=== PATIENT | male | born 1965 | race Caucasian/White ===

== ENCOUNTER 2023-09-29 09:02 | Outpatient (AMB) | payer OTHER, SELFPAY ==
--- NOTE | 2023-09-29 09:04 | A.OFFVIS_ITS ---
Intake Vital Signs 3 09/29/23 09:06 Height 5 ft 8.5 in Weight 260 lb BMI 39.0 BP 142/80 H Blood Pressure Location Rt brachial Position Sitting Pulse 87 Pulse Source Pulse Oximeter Pulse Oximetry (%) 96 Oxygen Delivery Method Room Air Intake Visit Reasons: Dyspnea on Exertion Visual Design Lead Required: No Clerical Assistant: Clerical Assistant offered & declined Accompanied by: Spouse Allergies Penicillins Allergy (Severe, Verified 09/29/23 09:12) trouble breathing Medication List - Last Reconciled 09/29/23 by Chika Shine LPN amlodipine 5 mg PO DAILY fluticasone propionate 50 mcg/actuation (Flonase Allergy Relief) 1 spray intranasal DAILY HPI Dyspnea on Exertion 2 HPI0 Details John is a pleasant 58 year old male, former smoker with approximately 100pyh, quit 2018, with underlying HTN and obstructive sleep apnea. He was referred by PCP for pulmonary evaluation. He reports worsening dyspnea on exertion over the last few years, however became more noticeable in June of last year as well as intermittent cough. He denies wheezing or chest congestion. He had a syncopal event while driving towards the end of June and has had a thorough work up with cardiology, undergoing two stress tests, EKG and recent echocardiogram, reportedly without significant findings. CTA performed, reportedly unremarkable, report not available. PFT performed, report below, without significant obstructive defect. Patient continues to fatigue easily and has had a 20 lb weight gain over the last few months as well as decreased excercise capacity. Of note, he did have a provoked DVT of LLE in 2018, completing 1 yr of anticoagulation. Since then, no DVT however has had intermittent swelling and pain of LLE. Denies orthopnea. He reports significant daytime fatigue as well as loud snoring and witnessed apneas. He had prior sleep study in 2017 revealing JOHANNE however had difficulties tolerating due to nasal congestion. He denies any prior history of asthma. He denies any family history of respiratory conditions. He denies any occupational exposures. [facility] Social History (Updated 09/29/23 @ 09:15 by Chika Shine LPN) Patient Tobacco Use Status: Former Tobacco user Tobacco use type: Cigarette Cigarette Packs Per Day: 2.5 Years Smoked: 42 Review of Systems Const Denies chills, Denies excessive sweating, Denies fever(s), Denies headache(s) and Denies night sweats Eyes Denies dry eyes, Denies irritation and Denies itchy eyes ENT Reports Normal hearing present, Denies headache(s), Denies nasal discharge and Denies sore throat Card Denies chest pain, Denies chest pain at rest, Denies chest pain with activity, Denies claudication, Denies orthopnea and Denies paroxysmal nocturnal dyspnea Resp Denies chest congestion, Denies excessive phlegm production, Denies pain on inspiration, Denies pain with cough, Denies stridor and Denies wheezing Musc Denies myalgias Neuro Reports Normal hearing present and Denies headache(s) Endo Denies excessive sweating Benjamín/Lymph Denies lymphadenopathy Aller/Immun Denies itchy eyes, Denies seasonal rhinorrhea and Denies wheezing Physical Exam Vital Signs: Last Vital Signs Pulse 87 09/29/23 09:06 BP 142/80 H 09/29/23 09:06 Pulse Ox 96 09/29/23 09:06 Oxygen Delivery Method Room Air 09/29/23 09:06 BMI result Body Mass Index 39.0 Const General: cooperative, healthy appearing, comfortable, no acute distress, well developed and alert Nutritional Appearance: obese Orientation/consciousness: patient oriented x3 Limitations: no limitations HEENT Head: Yes normal to inspection, Yes normocephalic and Yes atraumatic Ears: hearing grossly normal bilaterally and external ears normal Eyes General: appearance normal, both eyes and all related structures Eyelids: Yes eyelids normal Sclerae: sclerae normal EOM: EOMs intact bilaterally Neck Neck: Yes normal visual inspection and Yes no lymphadenopathy Lymphatic: no lymphadenopathy noted Chest Chest palpation & inspection: normal inspection of the chest Resp Effort & Inspection: normal respiratory effort, able to speak in complete sentences, no audible wheezes, no cough, no stridor, not tachypneic, no tripod positioning and no use of accessory muscles Auscultation: clear to auscultation bilaterally Cardio Jugular venous distension: no JVD Rate: regular rate Rhythm: regular rhythm Skin Other: warm, dry General skin exam: no rashes or lesions noted Neuro General: patient oriented x3 Cranial nerves: Yes Normal hearing present Cognition (Neuro): normal cognition Gait exam (Neuro): Normal gait present Extrem Other: 2-3+ pitting edema of LLE compared to RLE, wearing compression stockings. Psych Appearance: grossly normal and well kempt Speech and movement: Normal speech and movement present and Clear speech present Affect: normal affect Attitude: cooperative Thought process: Normal thought process present Thought content: Normal thought content present Insight: Good insight present (Psych) Judgement: Good judgement present (Psych) Office Procedures 6 Minute Walk Time:: 09:45 SPO2 % at rest: 94 Pulse at rest: 75 SPO2 % during excercise: 93 Pulse during excercise: 112 SPO2 % after excercise: 97 Pulse after excercise: 85 Distance in yards walked: 1,000 Fabiola Score: 4 Performance Observations:: Patient walked unassisted on level ground for 6 minutes. Patient maintained a brisk pace and maintained O2 saturation 93% or greater for the entire walk with pulse rate was 80-112. Patient noted to be short of breath at the end of the walk and reports being tired. [id number] - 6 Minute Walk Results Reviewed Results Reviewed: Assessment & Plan Assessment & Plan (1) COPD (chronic obstructive pulmonary disease): Code(s): J44.9 - Chronic obstructive pulmonary disease, unspecified (2) History of DVT (deep vein thrombosis): Code(s): Z86.718 - Personal history of other venous thrombosis and embolism (3) Dyspnea on exertion: Code(s): R06.09 - Other forms of dyspnea (4) Daytime somnolence: Code(s): R40.0 - Somnolence (5) Personal history of tobacco use: Code(s): Z87.891 - Personal history of nicotine dependence Plan John's symptoms are likely multifactorial with pulmonary and obesity/deconditioning etiologies as well as uncontrolled sleep apnea. Will empirically treat with Breo. Reviewed importance good oral hygiene. Also reviewed importance of weight loss and increase in activity. Patient's reports intermittent left lower extremity pain and swelling, noting prior DVT in this extremity. 2-3+ pitting edema of LLE noted today. Will send for ultrasound of lower extremity. 6MWT performed and patient does not require supplemental oxygen at this time. We had detailed discussion with regarding sleep apnea and the need for repeat testing. Patient is in agreement with moving forward with home sleep study, will enter this. Will attempt to obtain prior imaging which was performed at [facility] as well as prior echocardiogram. All questions were answered and patient is in agreement of plan. Will follow-up to review results of sleep study as well as response to Breo. Orders: Orders 2 US venous duplex LE LT Today R60.0 - Localized edema, Z86.718 - Personal history of other venous thrombosis and embolism AMB 6 minute walk Today R06.09 - Other forms of dyspnea RT home sleep study Today R40.0 - Somnolence Medications: New 2 fluticasone furoate-vilanterol 100-25 mcg/dose (Breo Ellipta) 1 inh inhalation DAILY 60 ea 6RF Coding Level of Care Code New Pt Level 4 (63396) Diagnoses COPD (chronic obstructive pulmonary disease) J44.9 History of DVT (deep vein thrombosis) Z86.718 Dyspnea on exertion R06.09 Daytime somnolence R40.0 Personal history of tobacco use Z87.891 CPT Codes Coding ([id number])
[2023-09-29 09:06] VITALS: BP 142/80; PULSE 87; O2SAT 96; BMI 39.0
[2023-09-29 10:16] VITALS: PULSE 75; O2SAT 94
== END 2023-09-29 10:59 | disposition home or self-care (01) ==
PROVIDERS: PCP Nurse Practitioner Primary Care; Referring Provider Nurse Practitioner Primary Care; Visit Provider Nurse Practitioner Family
DX: J44.9 Chronic obstructive pulmonary disease, unspecified (principal); Z86.718 Personal history of other venous thrombosis and embolism; R06.09 Other forms of dyspnea; R40.0 Somnolence; Z87.891 Personal history of nicotine dependence
CPT/HCPCS: 94618; 99204

== ENCOUNTER → 2023-09-29 09:02 | Outpatient (BNVA) | payer OTHER, SELFPAY | PROVIDERS: PCP Nurse Practitioner Primary Care; Referring Provider Nurse Practitioner Primary Care; Visit Provider Nurse Practitioner Family | DX: R06.09 Other forms of dyspnea (principal); J44.9 Chronic obstructive pulmonary disease, unspecified; R40.0 Somnolence; Z86.718 Personal history of other venous thrombosis and embolism; Z87.891 Personal history of nicotine dependence | CPT/HCPCS: 94618 ==

== ENCOUNTER 2023-09-30 12:20 | Outpatient (REF) | payer OTHER, SELFPAY ==
--- NOTE | ~2023-09-30 | US_ITS ---
EXAMINATION: US VENOUS ULTRASOUND WITH DOPPLER LOWER EXTREMITY, LEFT CLINICAL INFORMATION: Left leg edema COMPARISON: Ultrasound left lower leg 05/17/2020 TECHNIQUE: Ultrasound of the deep veins is performed from the hip to the calf with compression sonography and color and pulse Doppler assessment. Spectral analysis with color-flow imaging is performed. FINDINGS: There is a duplicated system on the left superficial femoral vein. There is clot visualized in the duplicated mid and distal left superficial femoral vein. The left common femoral, the other left superficial femoral vein, popliteal vein, posterior tibial and peroneal veins are patent. If the patient's symptoms persist, followup ultrasound in 5 days 7 days might be of value to exclude proximal propagation from a non-visualized calf vein. US/US venous duplex LE LT IMPRESSION: 1. 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 2. The other duplicated superficial femoral, common femoral, popliteal, peroneal and posterior tibial veins are patent. There is no Crockett's cyst.
== END 2023-09-30 12:21 | disposition home or self-care (01) ==
LOC: HO.US 12:20
PROVIDERS: PCP Internal Medicine; Visit Provider Nurse Practitioner Family
DX: R60.0 Localized edema (principal); Z86.718 Personal history of other venous thrombosis and embolism
CPT/HCPCS: 93971

== ENCOUNTER 2024-04-20 08:44 | Outpatient (AMB) | payer OTHER, SELFPAY ==
[2024-04-20 08:46] VITALS: BP 140/78; PULSE 66; O2SAT 95; BMI 38.5
--- NOTE | 2024-04-20 08:46 | A.OFFVIS_ITS ---
Vital Signs 04/20/24 08:46 Height 5 ft 8.5 in Weight 257 lb 4 oz BMI 38.5 BP 140/78 H Blood Pressure Location Rt brachial Position Sitting Pulse 66 Pulse Source Pulse Oximeter Pulse Oximetry (%) 95 Oxygen Delivery Method Room Air Intake Visit Reasons: dyspnea Allergies Penicillins Allergy (Severe, Verified 04/20/24 08:52) trouble breathing HPI HPI dyspnea: Details: John is a pleasant 59 year old male, former smoker with approximately 100pyh, quit 2017, with underlying COPD, HTN, JOHANNE unable to tolerate CPAP therapy and h/o provoked DVT completed course of Coumadin. He reports worsening dyspnea on exertion over the last few years was started on Wixela at the last visit, with initial improvements however continues with dyspnea on exertion and intermittent cough which he attributes to post nasal drip. He has trialed nasal sprays in the past that have not been effective and not interested in trialing one at this time. He reportedly had allergy testing a few years ago which was negative. He is a part of the lung screening through [facility] and will be scheduled for an annual chest CT in June. Today he also notes significant painful LLE with 3+ nonpitting edema and increased erythema. Denies any trauma to the area. At the last visit, he was sent for a home sleep study however this was never performed and he is not interested in scheduling at this time. [facility] Social History Patient Tobacco Use Status: Former Tobacco user Tobacco use type: Cigarette Cigarette Packs Per Day: 2.5 Years Smoked: 42 Review of Systems Const Denies chills, Denies excessive sweating, Denies fever(s), Denies headache(s) and Denies night sweats Eyes Denies dry eyes, Denies irritation and Denies itchy eyes ENT Reports Normal hearing present, Denies headache(s), Denies nasal discharge and Denies sore throat Card Denies chest pain, Denies chest pain at rest, Denies chest pain with activity, Denies claudication, Reports leg edema (LLE), Denies orthopnea and Denies paroxysmal nocturnal dyspnea Resp Denies chest congestion, Denies excessive phlegm production, Denies pain on inspiration, Denies pain with cough, Denies stridor and Denies wheezing Musc Denies myalgias Neuro Reports Normal hearing present and Denies headache(s) Endo Denies excessive sweating Aller/Immun Denies itchy eyes, Denies seasonal rhinorrhea and Denies wheezing Physical Exam Vital Signs: Last Vital Signs Pulse 66 04/20/24 08:46 BP 140/78 H 04/20/24 08:46 Pulse Ox 95 04/20/24 08:46 Oxygen Delivery Method Room Air 04/20/24 08:46 BMI result Body Mass Index 38.5 Const General: cooperative, healthy appearing, comfortable, no acute distress, well developed and alert Nutritional Appearance: obese Orientation/consciousness: patient oriented x3 Limitations: no limitations HEENT Head: Yes normal to inspection, Yes normocephalic and Yes atraumatic Ears: hearing grossly normal bilaterally and external ears normal Eyes General: appearance normal, both eyes and all related structures Eyelids: Yes eyelids normal Sclerae: sclerae normal EOM: EOMs intact bilaterally Neck Neck: Yes normal visual inspection and Yes no lymphadenopathy Lymphatic: no lymphadenopathy noted Chest Chest palpation & inspection: normal inspection of the chest Resp Other: bibasilar inspiratory crackles Effort & Inspection: normal respiratory effort, able to speak in complete sentences, no audible wheezes, no cough, no stridor, not tachypneic, no tripod positioning and no use of accessory muscles Cardio Jugular venous distension: no JVD Rate: regular rate Rhythm: regular rhythm Skin Other: warm, dry General skin exam: no rashes or lesions noted Neuro General: patient oriented x3 Cranial nerves: Yes Normal hearing present Cognition (Neuro): normal cognition Gait exam (Neuro): Normal gait present Extrem Other: LLE with 3+ nonpitting edema, increased erythema, and tender to the touch anteriorly, no discomfort posteriorly Psych Appearance: grossly normal and well kempt Speech and movement: Normal speech and movement present and Clear speech present Affect: normal affect Attitude: cooperative Thought process: Normal thought process present Thought content: Normal thought content present Insight: Good insight present (Psych) Judgement: Good judgement present (Psych) Assessment & Plan Assessment & Plan (1) COPD (chronic obstructive pulmonary disease): Code(s): J44.9 - Chronic obstructive pulmonary disease, unspecified Category: Medical (2) History of DVT (deep vein thrombosis): Code(s): Z86.718 - Personal history of other venous thrombosis and embolism Category: Medical (3) Dyspnea on exertion: Code(s): R06.09 - Other forms of dyspnea Category: Medical (4) Daytime somnolence: Code(s): R40.0 - Somnolence Category: Medical (5) Personal history of tobacco use: Code(s): Z87.891 - Personal history of nicotine dependence Category: Social Hx Plan Will increase Wixela. Given increased pain and notable swelling of LLE, will send for US to r/o DVT. He is aware if symptoms continue/worsen will seek emergent care. Will also send for vascular consultation. On exam patient with inspiratory bibasilar crackles, will send for CXR. All questions were answered and patient is in agreement of plan. Will call patients with results and follow up in 4 weeks or sooner if needed. Orders: Orders US venous duplex LE LT Today R60.0 - Localized edema, Z86.718 - Personal history of other venous thrombosis and embolism XR chest 2V Today R09.89 - Other specified symptoms and signs involving the circulatory and respiratory systems Referrals Vascular Surgery Referral R60.0 - Localized edema, Z86.718 - Personal history of other venous thrombosis and embolism Medications: New fluticasone propion-salmeterol 250-50 mcg/dose (Wixela Inhub) 1 inh inhalation Q12H 60 ea 6RF Discontinued fluticasone propion-salmeterol 100-50 mcg/dose (Wixela Inhub) Discontinued Reason: Patient Completed Course 1 inh inhalation BID 60 ea 3RF Coding Level of Care Code Est Pt Level 4 (17238) Diagnoses COPD (chronic obstructive pulmonary disease) J44.9 History of DVT (deep vein thrombosis) Z86.718 Dyspnea on exertion R06.09 Daytime somnolence R40.0 Personal history of tobacco use Z87.891
== END 2024-04-20 09:26 | disposition home or self-care (01) ==
PROVIDERS: PCP Internal Medicine; Visit Provider Nurse Practitioner Family
DX: J44.9 Chronic obstructive pulmonary disease, unspecified (principal); Z86.718 Personal history of other venous thrombosis and embolism; R06.09 Other forms of dyspnea; R40.0 Somnolence; Z87.891 Personal history of nicotine dependence
CPT/HCPCS: 99214

== ENCOUNTER → 2024-04-20 08:44 | Outpatient (BNVA) | payer OTHER, SELFPAY | PROVIDERS: PCP Internal Medicine; Visit Provider Nurse Practitioner Family ==

== ENCOUNTER 2024-04-20 14:39 | Outpatient (REF) | payer OTHER, SELFPAY ==
--- NOTE | ~2024-04-20 | XR_ITS ---
EXAMINATION: XR CHEST CLINICAL INFORMATION: Circulatory system dysfunction COMPARISON: None available. TECHNIQUE: 2 views of the chest were obtained. FINDINGS: No significant abnormality is noted involving the heart, lungs, mediastinum, bony thorax or soft tissues. XR/XR chest 2V IMPRESSION: Unremarkable examination. Electronically signed by: Ofelia Hair MD 04/20/2024 03:41 PM EDT RP
--- NOTE | ~2024-04-20 | US_ITS ---
EXAMINATION: US TRIPLEX LOWER EXTREMITY, LEFT CLINICAL INFORMATION: Venous thrombosis COMPARISON: Left thrombus TECHNIQUE: Color-flow triplex imaging with spectral analysis and compression Doppler were performed on the left lower extremity. FINDINGS: Respiratory variation, normal compression and augmented flow are noted throughout the left lower extremity side from the femoral vein. The visualized common femoral vein, profunda femoral vein, popliteal vein and midcalf posterior tibial venous segments show no evidence of deep venous thrombosis. There is chronic nonocclusive thrombus in the mid and distal femoral vein. The peroneal vein was not visualized. There is no Crockett's cyst. US/US venous duplex LE IMPRESSION: Chronic nonocclusive thrombus in the mid and distal femoral vein, stable from prior exam. Electronically signed by: Ofelia Hair MD 04/20/2024 03:40 PM EDT
== END 2024-04-20 14:40 | disposition home or self-care (01) ==
LOC: HO.US 14:39
PROVIDERS: PCP Internal Medicine; Visit Provider Nurse Practitioner Family
DX: Z86.718 Personal history of other venous thrombosis and embolism (principal); R60.0 Localized edema; R09.89 Other specified symptoms and signs involving the circulatory and respiratory systems
CPT/HCPCS: 71046; 93971

== ENCOUNTER 2024-05-17 13:49 | Outpatient (AMB) | payer OTHER, SELFPAY ==
--- NOTE | 2024-05-17 13:52 | A.OFFVIS_ITS ---
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 Pt states that left leg swelling and very painful. Pt has hx of blood clot. 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 He states it has gotten particularly worse in the last 2-1/2-3 years. He is status post a DVT in 2018 and was on Coumadin that was discontinued in September of 2018. He recently had an ultrasound which revealed a chronic nonocclusive thrombus in the mid and distal femoral vein. Since the DVT, he continues to have swelling in the left lower extremity. He also does endorse some swelling in the right lower extremity but not as much as the left. He does state that there is increased pain in the left side as well and is extremely painful to touch. Complaints include pain through the whole left leg, swelling of lower extremities, and heaviness of the lower extremities. It has been affecting their daily activities including walking, standing, and working. It is noted more so in left lower leg. He is a former smoker with a 105ppy hx, quitting in 2018. He is not a diabetic. 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 Patient denies any previous venous surgery or injections. Patient had a DVT in 2018 and was treated with 6m of Coumadin, ending in 09/2018. He has a chronic nonocclusive thrombus in the left mid and distal femoral vein. Patient denies any history of phlebitis. Trial of compression includes - compression stockings (hard for him to put on, due to the swelling) and elevation. They now present for vascular evaluation regarding their varicose veins. [facility] Family History (Updated 05/17/24 @ 13:56 by Lilly Musa CMA) Father Heart problem Social History (Updated 05/17/24 @ 13:55 by Lilly Musa CMA) Alcohol intake: current Alcohol intake frequency: 0-2 drinks per day Patient Tobacco Use Status: Former Tobacco user Tobacco use type: Cigarette Cigarette Packs Per Day: 2.5 Years Smoked: 42 Review of Systems Const Denies chills, Denies daytime sleepiness, Denies fatigue, Denies fever(s), Denies poor appetite, Denies snoring, Denies stops breathing during sleep, Denies weakness, Denies weight gain and Denies weight loss Eyes Denies loss of vision ENT Reports Normal hearing present, Denies dizziness and Denies hearing loss Card Denies chest pain, Denies irregular heart rhythm, Denies claudication, Reports leg edema, Denies lightheadedness, Denies palpitations, Denies dyspnea on exertion and Denies orthopnea Resp Denies cough, Denies excessive phlegm production, Denies dyspnea on exertion, Denies snoring and Denies wheezing GI Denies abdominal pain, Denies hematochezia, Denies change in bowel habits, Denies nausea and Denies vomiting Denies dysuria and Denies urinary frequency Musc Denies arthralgias, Denies muscle weakness, Denies numbness and Denies other Skin/Breast Denies nail changes and Denies rash Neuro Reports Normal hearing present, Denies Abnormal speech present, Denies dizziness, Denies loss of vision, Denies memory loss, Denies numbness, Denies Sensory deficit (Neuro) and Denies weakness Psych Denies depression and Denies memory loss Endo Denies fatigue and Denies palpitations Benjamín/Lymph Denies easy bruising Aller/Immun Denies wheezing Physical Exam Const General: healthy appearing and no acute distress Orientation/consciousness: patient oriented x3 HEENT Head: Yes normal to inspection Ears: hearing grossly normal bilaterally Mouth: Normal oral and palatal mucosa present Resp Effort & Inspection: normal respiratory effort and able to speak in complete sentences Auscultation: clear to auscultation bilaterally Cardio Jugular venous distension: no JVD Rate: regular rate Rhythm: regular rhythm Heart sounds: S1 normal heart sound present and S2 normal heart sound present Bruits: no abdominal aortic bruits, no carotid bruits, no femoral bruits and no renal bruits Peripheral pulses: Peripheral pulses 2+ throughout GI Inspection: Yes normal to inspection Palpation (GI): No Abdominal aortic bruit present Skin General skin exam: no rashes or lesions noted Wounds: no wounds Hair: normal Neuro General: patient oriented x3 Cranial nerves: Yes CN's II-XII intact bilaterally and Yes Normal hearing present Cognition (Neuro): normal cognition Speech: No Abnormal speech present Gait exam (Neuro): Normal gait present Motor exam (neuro): 5/5 motor strength present throughout Sensory Exam: No Sensory deficit (Neuro) Extrem Other: Left lower extremity: +2 pitting edema noted from the tip of the toes to the tibial area. No wounds noted. Very painful to the touch. Venous stasis dermatitis noted. Right lower extremity: +1 pitting edema noted from the tip of the toes to mid godinez. No wounds noted. Slightly painful to the touch. No erythema noted. Smaller amount of venous stasis dermatitis noted. CEAP: C - 4 E - primary A - superficial P - reflux General: Yes normal to inspection, Yes full ROM, Yes capillary refill normal and Yes normal gait Assessment & Plan Assessment & Plan (1) Varicose veins of both lower extremities with inflammation: Code(s): I83.11 - Varicose veins of right lower extremity with inflammation; I83.12 - Inge icose veins of left lower extremity with inflammation Category: Medical Plan: John is presenting today with an over 6-1/2 year history of increased swelling legs and painful legs. He has a significant smoking history and quit in 2018. He does have a history of a DVT and was on Coumadin for 6 months. In short, the patient has evidence of venous insufficiency. I have discussed the pathophysiology with the patient. In addition I have provided informational material regarding venous disease to the patient. We have discussed conservative measures including compression, elevation, and exercise. I have also provided a handout regarding appropriate use of compression stockings and where to purchase good compression stockings as well. I have taken the liberty of ordering venous insufficiency testing with the patient. They will follow up with me after testing. We did discuss some treatment options if it is a venous issue. We also did discuss a little bit about lymphedema. I did provide him with [place] compression stockings; he states his last compression stockings were from 2018. The patient had an opportunity to ask questions regarding the treatment plan. All questions were answered. Imaging studies, laboratory studies and physical exam results were discussed and reviewed in detail. No major barriers to understanding were identified. The patient expressed understanding and agreement with the above treatment plan. The patient is aware they should contact our office by phone for worsening of the current condition or the appearance of new symptoms. Thank you for allowing me to participate in the vascular care of this patient. If you have any questions or concerns regarding the treatment for the above condition please do not hesitate to contact me. The office telephone contact is [phone]. This note is constructed using voice recognition software. While every effort has been made to ensure accuracy, customer program specialist errors may have been included. Thank you for allowing me to participate in the care of your patient. Yours sincerely, ALIN Bryant Orders: Orders US venous duplex LE BI 1 Week I83.11 - Varicose veins of right lower extremity with inflammation, I83.12 - Varicose veins of left lower extremity with inflammation Coding Level of Care Code New Pt New Pt Level 4 (85900) Patient Type New Diagnoses Varicose veins of both lower extremities with inflammation I83.11; I83.12
== END 2024-05-17 14:09 | disposition home or self-care (01) ==
LOC: HO.HVS 13:50
PROVIDERS: PCP Internal Medicine; Visit Provider Physician Assistant Surgical
DX: I83.11 Varicose veins of right lower extremity with inflammation (principal); I83.12 Varicose veins of left lower extremity with inflammation
CPT/HCPCS: 99204

== ENCOUNTER → 2024-05-17 13:49 | Outpatient (BNVA) | payer OTHER, SELFPAY | PROVIDERS: PCP Internal Medicine; Visit Provider Physician Assistant Surgical ==

== ENCOUNTER 2024-05-31 09:54 | Outpatient (AMB) | payer OTHER, SELFPAY ==
--- NOTE | 2024-05-31 09:43 | MHC.OFFVIS ---
Vital Signs 05/31/24 09:57 Height 5 ft 8.5 in Weight 253 lb 2 oz BMI 37.9 BP 132/74 Blood Pressure Location Rt brachial Position Sitting Pulse 72 Pulse Source Pulse Oximeter Pulse Oximetry (%) 97 Oxygen Delivery Method Room Air Intake Visit Reasons: dyspnea Allergies Penicillins Allergy (Severe, Verified 05/31/24 09:58) trouble breathing HPI HPI dyspnea: Details: John is a pleasant 59 year old male, former smoker with approximately 100pyh, quit 2017, with underlying COPD, HTN, JOHANNE unable to tolerate CPAP therapy and h/o provoked DVT completed course of Coumadin. At the last visit, Wixela was increased and he reports moderate improvement in symptoms. He continues to report dyspnea on exertion and chest tightness. He does not have albuterol inhaler. He was also sent for CXR as bibasilar crackles were appreciated on exam however CXR unremarkable. He is a part of the lung screening through [facility] and will be scheduled for an annual chest CT in June. He denies any visits to urgent care or hospitalizations related to respiratory distress since the last visit. [facility] Family History (Updated 05/17/24 @ 13:56 by Lilly Musa MAINTENANCE DIRECTOR) Father Heart problem Social History Alcohol intake: current Alcohol intake frequency: 0-2 drinks per day Patient Tobacco Use Status: Former Tobacco user Tobacco use type: Cigarette Cigarette Packs Per Day: 2.5 Years Smoked: 42 Review of Systems Const Denies chills, Denies excessive sweating, Denies fever(s), Denies headache(s) and Denies night sweats Eyes Denies dry eyes, Denies irritation and Denies itchy eyes ENT Reports Normal hearing present, Denies headache(s), Denies nasal discharge and Denies sore throat Card Denies chest pain, Denies chest pain at rest, Denies chest pain with activity, Denies claudication, Reports leg edema (LLE), Denies orthopnea and Denies paroxysmal nocturnal dyspnea Resp Denies chest congestion, Denies excessive phlegm production, Denies pain on inspiration, Denies pain with cough, Denies stridor and Denies wheezing Musc Denies myalgias Neuro Reports Normal hearing present and Denies headache(s) Endo Denies excessive sweating Aller/Immun Denies itchy eyes, Denies seasonal rhinorrhea and Denies wheezing Physical Exam Vital Signs: Last Vital Signs Pulse 72 05/31/24 09:57 BP 132/74 05/31/24 09:57 Pulse Ox 97 05/31/24 09:57 Oxygen Delivery Method Room Air 05/31/24 09:57 BMI result Body Mass Index 37.9 Const General: cooperative, healthy appearing, comfortable, no acute distress, well developed and alert Nutritional Appearance: obese Orientation/consciousness: patient oriented x3 Limitations: no limitations HEENT Head: Yes normal to inspection, Yes normocephalic and Yes atraumatic Ears: hearing grossly normal bilaterally and external ears normal Eyes General: appearance normal, both eyes and all related structures Eyelids: Yes eyelids normal Sclerae: sclerae normal EOM: EOMs intact bilaterally Neck Neck: Yes normal visual inspection and Yes no lymphadenopathy Lymphatic: no lymphadenopathy noted Chest Chest palpation & inspection: normal inspection of the chest Resp Other: bibasilar inspiratory crackles Effort & Inspection: normal respiratory effort, able to speak in complete sentences, no audible wheezes, no cough, no stridor, not tachypneic, no tripod positioning and no use of accessory muscles Auscultation: clear to auscultation bilaterally Cardio Jugular venous distension: no JVD Rate: regular rate Rhythm: regular rhythm Skin Other: warm, dry General skin exam: no rashes or lesions noted Neuro General: patient oriented x3 Cranial nerves: Yes Normal hearing present Cognition (Neuro): normal cognition Gait exam (Neuro): Normal gait present Extrem Other: LLE with 2+ nonpitting edema Psych Appearance: grossly normal and well kempt Speech and movement: Normal speech and movement present and Clear speech present Affect: normal affect Attitude: cooperative Thought process: Normal thought process present Thought content: Normal thought content present Insight: Good insight present (Psych) Judgement: Good judgement present (Psych) Results Reviewed Results Reviewed: [address] [address] XRay Report Signed Patient: John Win MR#: [id number] : 1965 Acct:[id number] Age/Sex: 59 / M ADM Date: 04/20/24 Loc: HO. Attending Dr: Teresa Wen ENTERPRISE PROJECT MANAGER Ordering Physician: Teresa Wen NP Date of Service: 04/20/24 Procedure(s): XR chest 2V Accession Number(s): [id number] cc: John Gomez MD; Teresa Wen NP~ EXAMINATION: XR CHEST CLINICAL INFORMATION: Circulatory system dysfunction COMPARISON: None available. TECHNIQUE: 2 views of the chest were obtained. FINDINGS: No significant abnormality is noted involving the heart, lungs, mediastinum, bony thorax or soft tissues. XR/XR chest 2V IMPRESSION: Unremarkable examination. Electronically signed by: Ofelia Hair MD 04/20/2024 03:41 PM EDT RP Dictated By: Ofelia Hair MD Signed By: <Electronically signed by Ofelia Hair MD in OV> 04/20/24 1541 DD/ 1444 TD/TT: 04/20/24 1520 Donor Relations Officer: PN Assessment & Plan Assessment & Plan (1) COPD (chronic obstructive pulmonary disease): Code(s): J44.9 - Chronic obstructive pulmonary disease, unspecified Category: Medical (2) History of DVT (deep vein thrombosis): Code(s): Z86.718 - Personal history of other venous thrombosis and embolism Category: Medical (3) Dyspnea on exertion: Code(s): R06.09 - Other forms of dyspnea Category: Medical (4) Daytime somnolence: Code(s): R40.0 - Somnolence Category: Medical (5) Personal history of tobacco use: Code(s): Z87.891 - Personal history of nicotine dependence Category: Social Hx Plan John reports improved control on Wixela, advised to continue and will add albuterol MDI PRN. Will await chest CT results to be performed at [facility] in June. All questions were answered and patient is in agreement of plan. Will follow up in 3 months or sooner if needed. Medications: New albuterol sulfate 90 mcg/actuation 2 puffs inhalation Q4-6H PRN 1 ea 3RF shortness of breath or wheezing Coding Level of Care Code Est Pt Level 3 (81135) Diagnoses COPD (chronic obstructive pulmonary disease) J44.9 History of DVT (deep vein thrombosis) Z86.718 Dyspnea on exertion R06.09 Daytime somnolence R40.0 Personal history of tobacco use Z87.891
[2024-05-31 09:57] VITALS: BP 132/74; PULSE 72; O2SAT 97; BMI 37.9
== END 2024-05-31 10:15 | disposition home or self-care (01) ==
PROVIDERS: PCP Internal Medicine; Visit Provider Nurse Practitioner Family
DX: J44.9 Chronic obstructive pulmonary disease, unspecified (principal); Z86.718 Personal history of other venous thrombosis and embolism; R06.09 Other forms of dyspnea; R40.0 Somnolence; Z87.891 Personal history of nicotine dependence
CPT/HCPCS: 99213

== ENCOUNTER 2024-06-01 08:15 | Outpatient (REF) | payer OTHER, SELFPAY ==
--- NOTE | ~2024-06-01 | US_ITS ---
EXAMINATION: US LOWER EXTREMITY VENOUS (REFLUX EXAM), BILATERAL CLINICAL INDICATION: Chronic venous insufficiency and chronic deep venous thrombosis of the left superficial femoral vein COMPARISON: Ultrasound from 04/20/2024 and 09/30/2023 TECHNIQUE: Color flow triplex imaging and compression Doppler was performed to evaluate both the deep and the superficial systems bilaterally. To evaluate the superficial system, the examination was performed in the upright position. Color-flow Doppler ultrasound and compression ultrasound were utilized. In addition, maneuvers were utilized to demonstrate reflux. FINDINGS: 1. DEEP VENOUS ULTRASOUND OF THE RIGHT LOWER EXTREMITY: Common Femoral Vein: Compressible, normal respiratory variation and augmented flow. Femoral Vein: Compressible, normal color flow and augmentation. Popliteal Vein: Compressible, normal augmentation. Deep Reflux: There is no evidence of reflux in the deep system in either the common femoral vein, superficial femoral or the popliteal vein. There is no evidence of a Crockett's cyst. 2. SUPERFICIAL ULTRASOUND WITH DOPPLER OF RIGHT LOWER EXTREMITY: GREAT SAPHENOUS VEIN: Saphenofemoral Junction: 0.7 cm; Reflux: 0 ms Proximal Thigh: 0.5 cm; Reflux: 0 ms Mid Thigh: 0.3 cm; Reflux: 0 ms Above Knee: 0.5 cm; Reflux: 0 ms At Knee: 0.5 cm; Reflux: 0 ms Below Knee: 0.4 cm; Reflux: 1232 ms Mid Calf: 0.3 cm; Reflux: 0 ms Ankle: 0.3 cm; Reflux: 0 ms DUPLICATED MEDIAL GREAT SAPHENOUS VEIN: Diameter: None imaged Reflux: NA DUPLICATED LATERAL GREAT SAPHENOUS VEIN: Diameter: None imaged Reflux: NA SMALL SAPHENOUS VEIN: Saphenopopliteal Junction: 0.4 cm; Reflux: 0 ms Proximal: 0.3 cm; Reflux: 0 ms Distal: 0.2 cm; Reflux: 0 ms VEIN OF GIACOMINI: Size: NA Reflux: NA PERFORATORS: Location: Posterior calf to the small saphenous vein, mid thigh and proximal calf to the great saphenous vein Size: 0.3 cm Reflux: None VARICOSITIES: Location: Proximal thigh off the great saphenous vein, distal thigh off the great saphenous vein in the of the great saphenous vein Size: 0.3 cm Reflux: Ranging from 580 ms to 2420 ms 3. DEEP VENOUS ULTRASOUND OF THE LEFT LOWER EXTREMITY: Common Femoral Vein: Compressible, normal respiratory variation and augmented flow. Femoral Vein: There is a duplicated segment of the superficial femoral vein in the mid and distal thigh which is small in size. Noncompressible consistent with chronic thrombosis. This is unchanged compared to the prior exam Popliteal Vein: Compressible, normal augmentation. Deep Reflux: There is no evidence of reflux in the deep system in either the common femoral vein, superficial femoral or the popliteal vein. There is no evidence of a Crockett's cyst. 4. SUPERFICIAL ULTRASOUND WITH DOPPLER OF LEFT LOWER EXTREMITY: GREAT SAPHENOUS VEIN: Saphenofemoral Junction: 1.0 cm; Reflux: 0 ms Proximal Thigh: 0.6 cm; Reflux: 0 ms Mid Thigh: 0.6 cm; Reflux: 0 ms Above Knee: 0.6 cm; Reflux: 0 ms At Knee: 0.6 cm; Reflux: 0 ms Below Knee: 0.7 cm; Reflux: 0 ms Mid Calf: 0.4 cm; Reflux: 1140 ms Ankle: 0.5 cm; Reflux: 0 ms DUPLICATED MEDIAL GREAT SAPHENOUS VEIN: Diameter: None imaged Reflux: NA DUPLICATED LATERAL GREAT SAPHENOUS VEIN: Diameter: None imaged Reflux: NA SMALL SAPHENOUS VEIN: Saphenopopliteal Junction: 0.3 cm; Reflux: 0 ms Proximal: 0.3 cm; Reflux: 0 ms Distal: 0.2 cm; Reflux: 0 ms VEIN OF GIACOMINI: Size: NA Reflux: NA PERFORATORS: Location: Thigh and calf Size: 0.3 - 0.4 cm Reflux: None VARICOSITIES: Location: None significant Size: NA Reflux: NA US/US venous duplex LE BI IMPRESSION: 1. Right: Focal reflux in the great saphenous vein below the knee. Multiple varicosities in the thigh as described above. 2. 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 This is unchanged compared to the prior exam. Focal reflux in the great saphenous vein in the mid calf. Electronically signed by: Emory Linder MD 06/29/2024 12:40 PM [facility]
== END 2024-06-01 08:16 | disposition home or self-care (01) ==
LOC: HO.US 08:15
PROVIDERS: PCP Internal Medicine; Visit Provider Physician Assistant Surgical
DX: I83.11 Varicose veins of right lower extremity with inflammation (principal); I83.12 Varicose veins of left lower extremity with inflammation
CPT/HCPCS: 93970

== ENCOUNTER 2024-06-07 13:16 | Outpatient (AMB) | payer OTHER, SELFPAY ==
--- NOTE | 2024-06-07 13:31 | MHC.OFFVIS ---
Intake Visit Reasons: Follow up 06/01 US Intake Note: Patient presents for US follow up. Has been having left leg swelling. Accompanied by: Spouse Allergies Penicillins Allergy (Severe, Verified 06/07/24 13:32) trouble breathing HPI HPI Follow up 06/01 US: Details: John is presenting today for a follow up to US testing that occurred on 06/01. He continues to have bilateral lower extremity swelling, L>R. He has been elevating but has not been doing compression stockings; the ones we gave him were too small. [facility] Family History Father Heart problem Social History Alcohol intake: current Alcohol intake frequency: 0-2 drinks per day Patient Tobacco Use Status: Former Tobacco user Tobacco use type: Cigarette Cigarette Packs Per Day: 2.5 Years Smoked: 42 Review of Systems Const Reports as per HPI and Denies weakness ENT Reports Normal hearing present and Denies dizziness Card Reports as per HPI, Denies chest pain, Denies chest pain at rest, Denies chest pain with activity, Denies dyspnea and Denies dyspnea on exertion Resp Reports as per HPI, Denies cough, Denies dyspnea and Denies dyspnea on exertion GI Reports as per HPI, Denies abdominal pain, Denies nausea and Denies vomiting Musc Denies numbness Skin/Breast Reports as per HPI, Denies erythema and Denies wounds Neuro Reports Normal hearing present, Denies dizziness, Denies numbness, Denies Sensory deficit (Neuro) and Denies weakness Psych Reports no additional complaints Endo Reports no additional complaints Physical Exam Const General: healthy appearing and no acute distress Orientation/consciousness: patient oriented x3 HEENT Head: Yes normal to inspection Ears: hearing grossly normal bilaterally Mouth: Normal oral and palatal mucosa present Resp Effort & Inspection: normal respiratory effort and able to speak in complete sentences Auscultation: clear to auscultation bilaterally Cardio Jugular venous distension: no JVD Rate: regular rate Rhythm: regular rhythm Heart sounds: S1 normal heart sound present and S2 normal heart sound present Bruits: no abdominal aortic bruits, no carotid bruits, no femoral bruits and no renal bruits Peripheral pulses: Peripheral pulses 2+ throughout GI Inspection: Yes normal to inspection Palpation (GI): No Abdominal aortic bruit present Skin General skin exam: no rashes or lesions noted Wounds: no wounds Hair: normal Neuro General: patient oriented x3 Cranial nerves: Yes Normal hearing present Cognition (Neuro): normal cognition Gait exam (Neuro): Normal gait present Motor exam (neuro): 5/5 motor strength present throughout Sensory Exam: No Sensory deficit (Neuro) Extrem Other: Bilateral lower extremity swelling: L>R, appx +1. General: Yes normal to inspection, Yes full ROM, Yes capillary refill normal and Yes normal gait Results Reviewed Results Reviewed: Brief summary of venous insufficiency testing is as follows: right great saphenous vein: negative right small saphenous vein: negative right accessory vein: none present left great saphenous vein: negative left small saphenous vein: negative left accessory vein: none present Please note there is no evidence of any venous aneurysms or significant tortuosity Assessment & Plan Assessment & Plan (1) Varicose veins of both lower extremities with inflammation: Code(s): I83.11 - Varicose veins of right lower extremity with inflammation; I83.12 - Varicose veins of left lower extremity with inflammation Category: Medical Plan: John is presenting today as a follow up to his venous insufficiency ultrasound performed on June 01. There was no venous insufficiency found. We discussed that she reach out to his PCP office for further evaluation and treatment. We discussed a well-balanced diet and the importance of physical activity. We discussed continuing with elevation and compression stockings. We discussed the importance of obtaining compression stockings that fit well and maintain a compression of 20-30 mmHg. We discussed if he had any other vascular concerns he can reach out to our office at any point. Coding Level of Care Code Est Pt Level 4 (58520) Diagnoses Varicose veins of both lower extremities with inflammation I83.11; I83.12 Comment Review of venous insufficiency ultrasound
== END 2024-06-07 13:49 | disposition home or self-care (01) ==
PROVIDERS: PCP Internal Medicine; Visit Provider Physician Assistant Surgical
DX: I83.11 Varicose veins of right lower extremity with inflammation (principal); I83.12 Varicose veins of left lower extremity with inflammation
CPT/HCPCS: 99214

== ENCOUNTER 2024-08-30 09:52 | Outpatient (AMB) | payer OTHER, SELFPAY ==
--- NOTE | 2024-08-30 10:03 | MHC.OFFVIS ---
Vital Signs 08/30/24 10:13 Height 5 ft 8.5 in Weight 251 lb BMI 37.6 BP 144/78 H Blood Pressure Location Rt brachial Position Sitting Pulse 65 Pulse Source Pulse Oximeter Pulse Oximetry (%) 97 Oxygen Delivery Method Room Air Intake Visit Reasons: dyspnea Paper Rewinder Operator Required: No Mine Manager: Mine Manager offered & declined Accompanied by: Spouse Allergies Penicillins Allergy (Severe, Verified 08/30/24 10:20) trouble breathing Medication List - Last Reconciled 08/30/24 by Chika Shine LPN albuterol sulfate 90 mcg/actuation 2 puffs inhalation Q4-6H PRN amlodipine 5 mg PO DAILY fluticasone propion-salmeterol 250-50 mcg/dose (Wixela Inhub) 1 inh inhalation Q12H HPI HPI dyspnea: Details: Daniel is a pleasant 59 year old male, former smoker with approximately 100pyh, quit 2018, with underlying COPD, HTN, JOHANNE unable to tolerate CPAP therapy and h/o provoked DVT completed course of Coumadin. He has been well controlled with Wixela, requiring albuterol MDI infrequently. He currently denies any respiratory symptoms. He denies any visits to urgent care or hospitalizations related to respiratory distress since the last visit. Today he presents for routine follow up. Since the last visit, he did undergo chest CT through [facility] lung screening program, revealed stable pulmonary nodules <6mm. He has also been evaluated by vascular for ongoing LLE edema/pain, and will be evaluated by lymphedema clinic in the near future. [facility] Family History Father Heart problem Social History Alcohol intake: current Alcohol intake frequency: 0-2 drinks per day Patient Tobacco Use Status: Former Tobacco user Tobacco use type: Cigarette Cigarette Packs Per Day: 2.5 Years Smoked: 42 Review of Systems Const Denies chills, Denies excessive sweating, Denies fever(s), Denies headache(s) and Denies night sweats Eyes Denies dry eyes, Denies irritation and Denies itchy eyes ENT Reports Normal hearing present, Denies headache(s), Denies nasal congestion, Denies nasal discharge, Denies post nasal drip and Denies sore throat Card Denies chest pain, Denies chest pain at rest, Denies chest pain with activity, Denies claudication, Reports leg edema (L>R), Denies dyspnea, Denies dyspnea on exertion, Denies orthopnea and Denies paroxysmal nocturnal dyspnea Resp Denies chest congestion, Denies cough, Denies excessive phlegm production, Denies pain on inspiration, Denies pain with cough, Denies dyspnea, Denies dyspnea on exertion, Denies stridor and Denies wheezing Musc Denies myalgias Neuro Reports Normal hearing present and Denies headache(s) Endo Denies excessive sweating Benjamín/Lymph Denies lymphadenopathy Aller/Immun Denies itchy eyes, Denies seasonal rhinorrhea and Denies wheezing Physical Exam Vital Signs: Last Vital Signs Pulse 65 08/30/24 10:13 BP 144/78 H 08/30/24 10:13 Pulse Ox 97 08/30/24 10:13 Oxygen Delivery Method Room Air 08/30/24 10:13 BMI result Body Mass Index 37.6 Const General: cooperative, healthy appearing, comfortable, no acute distress, well developed and alert Nutritional Appearance: obese Orientation/consciousness: patient oriented x3 Limitations: no limitations HEENT Head: Yes normal to inspection, Yes normocephalic and Yes atraumatic Ears: hearing grossly normal bilaterally and external ears normal Eyes General: appearance normal, both eyes and all related structures Eyelids: Yes eyelids normal Sclerae: sclerae normal EOM: EOMs intact bilaterally Neck Neck: Yes normal visual inspection and Yes no lymphadenopathy Lymphatic: no lymphadenopathy noted Chest Chest palpation & inspection: normal inspection of the chest Resp Effort & Inspection: normal respiratory effort, able to speak in complete sentences, no audible wheezes, no cough, no stridor, not tachypneic, no tripod positioning and no use of accessory muscles Auscultation: clear to auscultation bilaterally Cardio Jugular venous distension: no JVD Rate: regular rate Rhythm: regular rhythm Skin Other: warm, dry General skin exam: no rashes or lesions noted Neuro General: patient oriented x3 Cranial nerves: Yes Normal hearing present Cognition (Neuro): normal cognition Gait exam (Neuro): Normal gait present Extrem Other: LLE with 2+ nonpitting edema Psych Appearance: grossly normal and well kempt Speech and movement: Normal speech and movement present and Clear speech present Affect: normal affect Attitude: cooperative Thought process: Normal thought process present Thought content: Normal thought content present Insight: Good insight present (Psych) Judgement: Good judgement present (Psych) Results Reviewed Results Reviewed: PFT's Complete Lab: [facility] Name: DANIEL CLAYTON CMRN: [id number] Sex: M Age: 58 Ethnicity: C Height: 68.5 In Weight: 259 Lb BMI: 40.7 Referring: Mily Sesay M.D. Date of test: 27-Aug-2023 SPIROMETRY: FEV1 2.67, 84%; FVC 3.67, 91%; FEV1/FVC 73%; PEFR 7.02, 82%; Post FEV1 2.68, 85% (0%); FVC 3.71, 92% (1%); PEFR 7.31, 86%; (4%) SVC 3.67, 91% LUNG VOLUMES (Box): TLC 5.13, 78%; FRC 3.59, 108%; RV 1.46, 72%, IC 1.54, ERV 2.13; sGaw 0.18, predicted > 0.11 DIFFUSING CAPACITY: DLCO and KCO are 89% predicted adjusted for lung volume, Hb, barometric pressure DLCO 21.81, 84%, KCO 3.92, 98% predicteds adjusted for Hb of 15.4 VA 5.56, 86% 3.82, 95%, 104% of FVC INTERPRETATION: Spirometry is normal. No significant response to bronchodilator. Mild restrictive defect which may be seen with interstitial disease (although normal DLCO argues against this), obesity, or extrathoracic causes of restriction. The carbon monoxide diffusing capacity is normal. Interpreting Physician: Giuliano Trujillo M.D. PFT's Complete Please click on pdf link to open report RESULT: CT Chest LDCT Lung Program CT Chest LDCT Lung Program Reason: Other:; LDCT LUNG CANCER SCREENING PROGRAM, CURRENT SMOKER, 50 PACK YEAR HX; Clinical Question(s): Other:; Special Instructions: BOOK AT [facility] [place], [place] BOOK AFTER [address] IN THE LAST 12 MONTHS NO LUNG CA OR SIGNS AND SYMPTOMS OF LUNG CA Visit type: Annual Screening TECHNIQUE: Low-dose helical CT of the chest without IV contrast (Adult Lung Cancer Screening) protocol was performed. Coronal reformats were obtained. Weight-based protocol using automatic tube modulation was used to optimize exposure parameters. CTDIvol Body: 5.32 mGy, DLP Body: 186 mGy*cm. COMPARISON: CT chest lung cancer screening from 04/20/2023 CTA chest from 06/19/2023 FINDINGS: LUNG NODULES (measured on thin axial series 4): RIGHT lung: None. LEFT lun mm fissural left lower lobe (137), unchanged. 2 mm left posterior subpleural nodule (182), unchanged. OTHER FINDINGS: Leather Belt Loop Cutter view findings, lines and tubes: None. Trachea and airways: Patent without evidence of tracheal or endobronchial lesion. Lungs and pleura: Mild dependent atelectasis. No effusion or pneumothorax. Mediastinum and david: No mass or hematoma. No mediastinal or hilar lymphadenopathy. No esophageal abnormality. Partially imaged thyroid is unremarkable. Heart: Heart is normal in size. No pericardial effusion. Moderate coronary artery calcification. Aorta: No aortic aneurysm. Pulmonary arteries: Normal caliber. Chest wall soft tissues: No acute abnormality. Diaphragm: Intact. Upper abdomen: No significant abnormality. Bones: No acute abnormality. Spine degenerative changes. IMPRESSION: 1. Compared to 04/20/2023, unchanged left pulmonary nodules measuring up to 6 mm. No new or enlarging suspicious nodule. LungRad Category: 2 Benign Appearance or Behavior. Nodules with a very low likelihood of becoming a clinically active cancer due to size or lack of growth. Continue annual screening with LDCT in 12 months. 2. No significant additional findings requiring further evaluation. Lung-RAD Category Modifier: None. Categorization based on Lung-RADS 2022 criteria. [email or web address] WSN: [id number] Ordering Physician: Daniel Gomez Reason For Exam LDCT LUNG CANCER SCREENING PROGRAM, CURRENT SMOKER, 50 PACK YEAR HX;Other: Signature Line Dictated By: Josué Leslie MD Dictated Date/Time: 08/19/24 10:20 a Reviewed By: Josué Leslie MD Signed By: Josué Leslie MD Signed Date/Time: 08/19/24 10:20 am Transcribed By: SAMUEL Transcribed Date/Time: 08/19/24 10:07 am Assessment & Plan Assessment & Plan (1) COPD (chronic obstructive pulmonary disease): Code(s): J44.9 - Chronic obstructive pulmonary disease, unspecified Category: Medical (2) History of DVT (deep vein thrombosis): Code(s): Z86.718 - Personal history of other venous thrombosis and embolism Category: Medical (3) Dyspnea on exertion: Code(s): R06.09 - Other forms of dyspnea Category: Medical (4) Personal history of tobacco use: Code(s): Z87.891 - Personal history of nicotine dependence Category: Social Hx Plan Daniel reports good control of respiratory symptoms using Wixela 250 mcg and albuterol MDI PRN, advised to continue. All questions were answered and patient is in agreement of plan. Will follow up in 3-6 months or sooner if needed. Coding Level of Care Code Est Pt Level 4 (44626) Diagnoses COPD (chronic obstructive pulmonary disease) J44.9 History of DVT (deep vein thrombosis) Z86.718 Dyspnea on exertion R06.09 Personal history of tobacco use Z87.891
[2024-08-30 10:13] VITALS: BP 144/78; PULSE 65; O2SAT 97; BMI 37.6
== END 2024-08-30 10:58 | disposition home or self-care (01) ==
PROVIDERS: PCP Internal Medicine; Visit Provider Nurse Practitioner Family
DX: J44.9 Chronic obstructive pulmonary disease, unspecified (principal); Z86.718 Personal history of other venous thrombosis and embolism; R06.09 Other forms of dyspnea; Z87.891 Personal history of nicotine dependence
CPT/HCPCS: 99214

== ENCOUNTER 2024-12-27 09:47 | Outpatient (AMB) | payer OTHER, SELFPAY ==
[2024-12-27 09:49] VITALS: BP 130/78; PULSE 64; O2SAT 96; BMI 38.9
--- NOTE | 2024-12-27 09:49 | MHC.OFFVIS ---
Vital Signs 12/27/24 09:49 Height 5 ft 8.5 in Weight 259 lb 6 oz BMI 38.9 BP 130/78 Blood Pressure Location Rt brachial Position Sitting Pulse 64 Pulse Source Pulse Oximeter Pulse Oximetry (%) 96 Oxygen Delivery Method Room Air Intake Visit Reasons: dyspnea Allergies Penicillins Allergy (Severe, Verified 12/27/24 09:54) trouble breathing HPI HPI dyspnea: Details: John is a pleasant 59 year old male, former 100 pack year smoker, quit 2017, with underlying COPD, HTN, JOHANNE unable to tolerate CPAP therapy and h/o provoked DVT completed course of Coumadin. Since the last visit, he has stopped Wixela unclear if it was due to cost vs ineffectiveness. He has been without for the last few months and continues to report dyspnea on moderate exertion and chest tightness. He also reports cough which he attributes to post nasal drip and seasonal allergies. LDCT through [facility] lung screening program, revealed stable pulmonary nodules <6mm 07/2024 and will have one scheduled next July. Of note, he recently had labs performed by PCP to further evaluate CAD as he may have a cardiac contribution to dyspnea. He also discussed repeat home sleep study with PCP and is awaiting this to be scheduled. He is considering reattepting CPAP therapy vs Zepbound through PCP. [facility] Family History Father Heart problem Social History Alcohol intake: current Alcohol intake frequency: 0-2 drinks per day Patient Tobacco Use Status: Former Tobacco user Tobacco use type: Cigarette Cigarette Packs Per Day: 2.5 Years Smoked: 42 Review of Systems Const Denies chills, Denies excessive sweating, Denies fever(s), Denies headache(s) and Denies night sweats Eyes Denies dry eyes, Denies irritation and Denies itchy eyes ENT Reports Normal hearing present, Denies headache(s), Denies nasal congestion, Denies nasal discharge, Denies post nasal drip and Denies sore throat Card Denies chest pain, Denies chest pain at rest, Denies chest pain with activity, Denies claudication, Reports leg edema (L>R), Denies orthopnea and Denies paroxysmal nocturnal dyspnea Resp Denies chest congestion, Denies excessive phlegm production, Denies pain on inspiration, Denies pain with cough, Denies stridor and Denies wheezing Musc Denies myalgias Neuro Reports Normal hearing present and Denies headache(s) Endo Denies excessive sweating Benjamín/Lymph Denies lymphadenopathy Aller/Immun Denies itchy eyes and Denies wheezing Physical Exam Vital Signs: Last Vital Signs Pulse 64 12/27/24 09:49 BP 130/78 12/27/24 09:49 Pulse Ox 96 12/27/24 09:49 Oxygen Delivery Method Room Air 12/27/24 09:49 BMI result Body Mass Index 38.9 Const General: cooperative, healthy appearing, comfortable, no acute distress, well developed and alert Nutritional Appearance: obese Orientation/consciousness: patient oriented x3 Limitations: no limitations HEENT Head: Yes normal to inspection, Yes normocephalic and Yes atraumatic Ears: hearing grossly normal bilaterally and external ears normal Eyes General: appearance normal, both eyes and all related structures Eyelids: Yes eyelids normal Sclerae: sclerae normal EOM: EOMs intact bilaterally Neck Neck: Yes normal visual inspection and Yes no lymphadenopathy Lymphatic: no lymphadenopathy noted Chest Chest palpation & inspection: normal inspection of the chest Resp Effort & Inspection: normal respiratory effort, able to speak in complete sentences, no audible wheezes, no cough, no stridor, not tachypneic, no tripod positioning and no use of accessory muscles Auscultation: clear to auscultation bilaterally Cardio Jugular venous distension: no JVD Rate: regular rate Rhythm: regular rhythm Skin Other: warm, dry General skin exam: no rashes or lesions noted Neuro General: patient oriented x3 Cranial nerves: Yes Normal hearing present Cognition (Neuro): normal cognition Gait exam (Neuro): Normal gait present Extrem Other: 1+ pitting edema Psych Appearance: grossly normal and well kempt Speech and movement: Normal speech and movement present and Clear speech present Affect: normal affect Attitude: cooperative Thought process: Normal thought process present Thought content: Normal thought content present Insight: Good insight present (Psych) Judgement: Good judgement present (Psych) Results Reviewed Results Reviewed: RESULT: CT Chest LDCT Lung Program CT Chest LDCT Lung Program Reason: Other:; LDCT LUNG CANCER SCREENING PROGRAM, CURRENT SMOKER, 50 PACK YEAR HX; Clinical Question(s): Other:; Special Instructions: BOOK AT [address] [place] [address] BOOK AFTER 10 04 [address] IN THE LAST 12 MONTHS NO LUNG CA OR SIGNS AND SYMPTOMS OF LUNG CA Visit type: Annual Screening TECHNIQUE: Low-dose helical CT of the chest without IV contrast (Adult Lung Cancer Screening) protocol was performed. Coronal reformats were obtained. Weight-based protocol using automatic tube modulation was used to optimize exposure parameters. CTDIvol Body: 5.32 mGy, DLP Body: 186 mGy*cm. COMPARISON: CT chest lung cancer screening from 04/20/2023 CTA chest from 06/19/2023 FINDINGS: LUNG NODULES (measured on thin axial series 4): RIGHT lung: None. LEFT lun mm fissural left lower lobe (137), unchanged. 2 mm left posterior subpleural nodule (182), unchanged. OTHER FINDINGS: Planer Operator view findings, lines and tubes: None. Trachea and airways: Patent without evidence of tracheal or endobronchial lesion. Lungs and pleura: Mild dependent atelectasis. No effusion or pneumothorax. Mediastinum and david: No mass or hematoma. No mediastinal or hilar lymphadenopathy. No esophageal abnormality. Partially imaged thyroid is unremarkable. Heart: Heart is normal in size. No pericardial effusion. Moderate coronary artery calcification. Aorta: No aortic aneurysm. Pulmonary arteries: Normal caliber. Chest wall soft tissues: No acute abnormality. Diaphragm: Intact. Upper abdomen: No significant abnormality. Bones: No acute abnormality. Spine degenerative changes. IMPRESSION: 1. Compared to 04/20/2023, unchanged left pulmonary nodules measuring up to 6 mm. No new or enlarging suspicious nodule. LungRad Category: 2 Benign Appearance or Behavior. Nodules with a very low likelihood of becoming a clinically active cancer due to size or lack of growth. Continue annual screening with LDCT in 12 months. 2. No significant additional findings requiring further evaluation. Lung-RAD Category Modifier: None. Assessment & Plan Assessment & Plan (1) COPD (chronic obstructive pulmonary disease): Code(s): J44.9 - Chronic obstructive pulmonary disease, unspecified Category: Medical (2) History of DVT (deep vein thrombosis): Code(s): Z86.718 - Personal history of other venous thrombosis and embolism Category: Medical (3) Dyspnea on exertion: Code(s): R06.09 - Other forms of dyspnea Category: Medical (4) Personal history of tobacco use: Code(s): Z87.891 - Personal history of nicotine dependence Category: Social Hx Plan Encouraged John to reattempt Wixela consistently and if no improvements consider increasing Wixela vs adding Spiriva. Recommended patient follow up with cardiology/PCP regarding CAD found to have moderate CAD on LDCT. Patient is going to be scheduled for home sleep study via PCP office, if unable to have this scheduled this office will enter order. All questions were answered and patient is in agreement of plan. Will follow up in 3 months or sooner if needed. Coding Level of Care Code Est Pt Level 4 (67869) Diagnoses COPD (chronic obstructive pulmonary disease) J44.9 History of DVT (deep vein thrombosis) Z86.718 Dyspnea on exertion R06.09 Personal history of tobacco use Z87.890
== END 2024-12-27 10:31 | disposition home or self-care (01) ==
LOC: HO.HPSW 09:48
PROVIDERS: PCP Internal Medicine; Visit Provider Nurse Practitioner Family
DX: J44.9 Chronic obstructive pulmonary disease, unspecified (principal); Z86.718 Personal history of other venous thrombosis and embolism; R06.09 Other forms of dyspnea; Z87.891 Personal history of nicotine dependence
CPT/HCPCS: 99214

== ENCOUNTER → 2024-12-27 09:47 | Outpatient (BNVA) | payer OTHER, SELFPAY | PROVIDERS: PCP Internal Medicine; Visit Provider Nurse Practitioner Family ==

== ENCOUNTER 2025-03-29 09:50 | Outpatient (AMB) | payer OTHER, SELFPAY ==
[2025-03-29 09:57] VITALS: BP 116/74; PULSE 63; O2SAT 95; BMI 38.4
--- NOTE | 2025-03-29 09:57 | A.OFFVIS_ITS ---
Vital Signs 03/29/25 09:57 Height 5 ft 8.5 in Weight 256 lb 2 oz BMI 38.4 BP 116/74 Blood Pressure Location Rt brachial Position Sitting Pulse 63 Pulse Source Pulse Oximeter Pulse Oximetry (%) 95 Oxygen Delivery Method Room Air Intake Visit Reasons: dyspnea Allergies Penicillins Allergy (Severe, Verified 03/29/25 09:59) trouble breathing HPI HPI dyspnea: Details: John is a pleasant 59 year old male, former 100 pack year smoker, quit 2018, with underlying COPD, HTN, JOHANNE unable to tolerate CPAP therapy and h/o provoked DVT completed course of Coumadin. Since the last visit, restarted Wixela however he does admit to missing the 2nd dose on occasion and has been using albuterol MDI a few times a week with good effect. The patient reports that the shortness of breath has become more frequent, especially during physical activity, and is sometimes accompanied by chest tightness. He also reports ongoing nasal congestion previously recommended nasal spray which he has yet to try. He denies any visits to urgent care hospitalizations related to respiratory distress since last visit. He has been evaluated by Cardiology with reported no significant findings and will be following up on an annual basis. At the last visit he did report that PCP was considering home sleep study however there have been issues scheduling and is requesting this office take over ordering. LDCT through [facility] lung screening program, revealed stable pulmonary nodules <6mm 07/2024 and will have one scheduled next July. [facility] Family History Father Heart problem Social History Alcohol intake: current Alcohol intake frequency: 0-2 drinks per day Patient Tobacco Use Status: Former Tobacco user Tobacco use type: Cigarette Cigarette Packs Per Day: 2.5 Years Smoked: 42 Review of Systems Const Denies chills, Denies excessive sweating, Denies fever(s), Denies headache(s) and Denies night sweats Eyes Denies dry eyes, Denies irritation and Denies itchy eyes ENT Reports Normal hearing present, Denies headache(s), Denies nasal discharge, Reports post nasal drip and Denies sore throat Card Denies chest pain, Denies chest pain at rest, Denies chest pain with activity, Denies claudication, Reports leg edema (L>R), Reports dyspnea on exertion, Denies orthopnea and Denies paroxysmal nocturnal dyspnea Resp Denies change in phlegm color, Denies chest congestion, Reports cough, Denies excessive phlegm production, Denies pain on inspiration, Denies pain with cough, Reports dyspnea on exertion, Denies stridor and Denies wheezing Musc Denies myalgias Neuro Reports Normal hearing present and Denies headache(s) Endo Denies excessive sweating Benjamín/Lymph Denies lymphadenopathy Aller/Immun Denies itchy eyes and Denies wheezing Physical Exam Vital Signs: Last Vital Signs Pulse 63 03/29/25 09:57 BP 116/74 03/29/25 09:57 Pulse Ox 95 03/29/25 09:57 Oxygen Delivery Method Room Air 03/29/25 09:57 BMI result Body Mass Index 38.4 Const General: cooperative, healthy appearing, comfortable, no acute distress, well developed and alert Nutritional Appearance: obese Orientation/consciousness: patient oriented x3 Limitations: no limitations HEENT Head: Yes normal to inspection, Yes normocephalic and Yes atraumatic Ears: hearing grossly normal bilaterally and external ears normal Eyes General: appearance normal, both eyes and all related structures Eyelids: Yes eyelids normal Sclerae: sclerae normal EOM: EOMs intact bilaterally Neck Neck: Yes normal visual inspection and Yes no lymphadenopathy Lymphatic: no lymphadenopathy noted Chest Chest palpation & inspection: normal inspection of the chest Resp Effort & Inspection: normal respiratory effort, able to speak in complete sentences, no audible wheezes, no cough, no stridor, not tachypneic, no tripod positioning and no use of accessory muscles Auscultation: clear to auscultation bilaterally Cardio Jugular venous distension: no JVD Rate: regular rate Rhythm: regular rhythm Skin Other: warm, dry General skin exam: no rashes or lesions noted Neuro General: patient oriented x3 Cranial nerves: Yes Normal hearing present Cognition (Neuro): normal cognition Gait exam (Neuro): Normal gait present Extrem Other: BLE 1+ pitting edema Psych Appearance: grossly normal and well kempt Speech and movement: Normal speech and movement present and Clear speech present Affect: normal affect Attitude: cooperative Thought process: Normal thought process present Thought content: Normal thought content present Insight: Good insight present (Psych) Judgement: Good judgement present (Psych) Assessment & Plan Assessment & Plan (1) COPD (chronic obstructive pulmonary disease): Code(s): J44.9 - Chronic obstructive pulmonary disease, unspecified Category: Medical (2) History of DVT (deep vein thrombosis): Code(s): Z86.718 - Personal history of other venous thrombosis and embolism Category: Medical (3) Dyspnea on exertion: Code(s): R06.09 - Other forms of dyspnea Category: Medical (4) Personal history of tobacco use: Code(s): Z87.891 - Personal history of nicotine dependence Category: Social Hx (5) Daytime somnolence: Code(s): R40.0 - Somnolence Category: Medical (6) Loud snoring: Code(s): R06.83 - Snoring Category: Medical Plan We discussed switching medium dose Wixela to high dose Breo for better adherence and respiratory control, pending insurance approval. If Breo is not covered, we will consider increasing the dose of Wixela or switching to another inhaler. We also discussed the use of Flonase for postnasal drip and congestion, with the option to switch to ipratropium if needed. A home sleep study was recommended to evaluate for sleep apnea given symptoms suggestive of JOHANNE. All questions were answered and patient is in agreement of plan. Will follow up in 8-10 weeks or sooner if needed. Orders: Orders RT home sleep study Today R06.83 - Snoring Medications: New fluticasone furoate-vilanterol 200-25 mcg/dose (Breo Ellipta) 1 inh inhalation DAILY 60 ea 3RF Discontinued fluticasone propion-salmeterol 250-50 mcg/dose (Wixela Inhub) Discontinued Reason: Patient Completed Course 1 inh inhalation Q12H 60 ea 6RF Coding Level of Care Code Est Pt Level 4 (89230) Diagnoses COPD (chronic obstructive pulmonary disease) J44.9 History of DVT (deep vein thrombosis) Z86.718 Dyspnea on exertion R06.09 Personal history of tobacco use Z87.891 Daytime somnolence R40.0 Loud snoring R06.83
== END 2025-03-29 10:29 | disposition home or self-care (01) ==
PROVIDERS: PCP Internal Medicine; Visit Provider Nurse Practitioner Family
DX: J44.9 Chronic obstructive pulmonary disease, unspecified (principal); Z86.718 Personal history of other venous thrombosis and embolism; R06.09 Other forms of dyspnea; Z87.891 Personal history of nicotine dependence; R40.0 Somnolence; R06.83 Snoring
CPT/HCPCS: 99214

== ENCOUNTER 2025-06-06 11:40 | Outpatient (AMB) | payer OTHER, SELFPAY ==
[2025-06-06 11:42] VITALS: BP 144/78; PULSE 65; O2SAT 94; BMI 37.2
--- NOTE | 2025-06-06 11:42 | A.OFFVIS_ITS ---
Vital Signs 06/06/25 11:42 Height 5 ft 8.5 in Weight 248 lb 8 oz BMI 37.2 BP 144/78 H Blood Pressure Location Rt brachial Position Sitting Pulse 65 Pulse Source Pulse Oximeter Pulse Oximetry (%) 94 Oxygen Delivery Method Room Air Intake Visit Reasons: dyspnea Allergies Penicillins Allergy (Severe, Verified 06/06/25 11:45) trouble breathing HPI HPI dyspnea: Details: John is a pleasant 60 year old male, former 100 pack year smoker, quit 2017, with underlying COPD, HTN, JOHANNE unable to tolerate CPAP therapy and h/o provoked DVT completed course of Coumadin. At the last visit, Breo was increased to 200 mcg with overall improvements in dyspnea and wheezing, with significant decrease in Albuterol MDI. Over the last month patient with bronchitic symptoms with productive cough with yellow sputum and congestion. Denies fevers or chills. He also reports ongoing nasal congestion previously recommended nasal spray which he has yet to try. He denies any visits to urgent care hospitalizations related to respiratory distress since last visit. At the last visit he did report that PCP was considering home sleep study however there have been issues scheduling and is requesting this office take over ordering, continues to await this test to be scheduled. LDCT through [facility] lung screening program, revealed stable pulmonary nodules <6mm 07/2024 and will have one scheduled next July. Of note, patient also lost 10+lbs with significant decrease in BLE edema since using compression stockings and is motivated to continue. [facility] Family History Father Heart problem Social History Alcohol intake: current Alcohol intake frequency: 0-2 drinks per day Patient Tobacco Use Status: Former Tobacco user Tobacco use type: Cigarette Cigarette Packs Per Day: 2.5 Years Smoked: 42 Review of Systems Const Denies chills, Denies excessive sweating, Denies fever(s), Denies headache(s) and Denies night sweats Eyes Denies dry eyes, Denies irritation and Denies itchy eyes ENT Reports Normal hearing present, Denies headache(s), Denies nasal discharge, Reports post nasal drip and Denies sore throat Card Denies chest pain, Denies chest pain at rest, Denies chest pain with activity, Denies claudication, Reports dyspnea on exertion, Denies orthopnea and Denies paroxysmal nocturnal dyspnea Resp Denies change in phlegm color, Denies chest congestion, Denies cough, Denies hemoptysis, Denies excessive phlegm production, Denies pain on inspiration, Denies pain with cough, Reports dyspnea on exertion, Denies stridor and Reports wheezing Musc Denies myalgias Neuro Reports Normal hearing present and Denies headache(s) Endo Denies excessive sweating Benjamín/Lymph Denies lymphadenopathy Aller/Immun Denies itchy eyes and Reports wheezing Physical Exam Vital Signs: Last Vital Signs Pulse 65 06/06/25 11:42 BP 144/78 H 06/06/25 11:42 Pulse Ox 94 06/06/25 11:42 Oxygen Delivery Method Room Air 06/06/25 11:42 BMI result Body Mass Index 37.2 Const General: cooperative, healthy appearing, comfortable, no acute distress, well developed and alert Nutritional Appearance: obese Orientation/consciousness: patient oriented x3 Limitations: no limitations HEENT Head: Yes normal to inspection, Yes normocephalic and Yes atraumatic Ears: hearing grossly normal bilaterally and external ears normal Eyes General: appearance normal, both eyes and all related structures Eyelids: Yes eyelids normal Sclerae: sclerae normal EOM: EOMs intact bilaterally Neck Neck: Yes normal visual inspection and Yes no lymphadenopathy Lymphatic: no lymphadenopathy noted Chest Chest palpation & inspection: normal inspection of the chest Resp Effort & Inspection: normal respiratory effort, able to speak in complete sentences, no audible wheezes, Actively coughing, no stridor, not tachypneic, no tripod positioning and no use of accessory muscles Auscultation: crackles (inspiratory bibasilar crackles) and diminished lung sounds Cardio Jugular venous distension: no JVD Rate: regular rate Rhythm: regular rhythm Skin Other: warm, dry General skin exam: no rashes or lesions noted Neuro General: patient oriented x3 Cranial nerves: Yes Normal hearing present Cognition (Neuro): normal cognition Gait exam (Neuro): Normal gait present Extrem Other: BLE 1+ pitting edema L>R Psych Appearance: grossly normal and well kempt Speech and movement: Normal speech and movement present and Clear speech present Affect: normal affect Attitude: cooperative Thought process: Normal thought process present Thought content: Normal thought content present Insight: Good insight present (Psych) Judgement: Good judgement present (Psych) Assessment & Plan Assessment & Plan (1) COPD (chronic obstructive pulmonary disease): Code(s): J44.9 - Chronic obstructive pulmonary disease, unspecified Category: Medical (2) History of DVT (deep vein thrombosis): Code(s): Z86.718 - Personal history of other venous thrombosis and embolism Category: Medical (3) Dyspnea on exertion: Code(s): R06.09 - Other forms of dyspnea Category: Medical (4) Personal history of tobacco use: Code(s): Z87.891 - Personal history of nicotine dependence Category: Social Hx (5) Daytime somnolence: Code(s): R40.0 - Somnolence Category: Medical (6) Loud snoring: Code(s): R06.83 - Snoring Category: Medical Plan Will treat bronchitic symptoms with doxycycline, if symptoms do not improve will send for CXR. We discussed switching Breo to Trelegy due to suboptimal response however patient feels symptoms are improved and would like to stay with this current regimen. Advised to continue Breo in addition to Albuterol MDI PRN. He is aware to call if symptoms become less controlled. We again discussed the use of Flonase for postnasal drip and congestion, with the option to switch to ipratropium if needed which he will consider. A home sleep study was recommended to evaluate for sleep apnea given symptoms suggestive of JOHANNE, awaiting this will be scheduled. All questions were answered and patient is in agreement of plan. Will follow up in 3 months or sooner if needed. Medications: New doxycycline hyclate 100 mg PO BID 14 caps 0RF Refilled Breo Ellipta 200-25 mcg/dose (fluticasone furoate-vilanterol) 1 inh inhalation DAILY 60 ea 3RF NS albuterol sulfate 90 mcg/actuation 2 puffs inhalation Q4-6H PRN 1 ea 3RF shortness of breath or wheezing Coding Level of Care Code Est Pt Level 4 (24105) Complex EM visit Add On G2211 Diagnoses COPD (chronic obstructive pulmonary disease) J44.9 History of DVT (deep vein thrombosis) Z86.718 Dyspnea on exertion R06.09 Personal history of tobacco use Z87.891 Daytime somnolence R40.0 Loud snoring R06.83
== END 2025-06-06 12:10 | disposition home or self-care (01) ==
PROVIDERS: PCP Internal Medicine; Visit Provider Nurse Practitioner Family
DX: J44.9 Chronic obstructive pulmonary disease, unspecified (principal); Z86.718 Personal history of other venous thrombosis and embolism; R06.09 Other forms of dyspnea; Z87.891 Personal history of nicotine dependence; R40.0 Somnolence; R06.83 Snoring
CPT/HCPCS: 99214

== ENCOUNTER 2025-07-03 11:03 | Outpatient (AMB) | payer OTHER, SELFPAY ==
--- NOTE | 2025-07-03 11:04 | A.OFFVIS_ITS ---
Vital Signs 07/03/25 11:05 Height 5 ft 8.5 in Weight 250 lb 3.594 oz BMI 37.5 BP 160/94 H Blood Pressure Location Lt brachial Position Sitting Pulse 73 Pulse Source Pulse Oximeter Pulse Oximetry (%) 97 Oxygen Delivery Method Room Air Intake Visit Reasons: sob, prod cough, lung pain Allergies Penicillins Allergy (Severe, Verified 07/03/25 11:08) trouble breathing HPI Comments Details: John is a pleasant 60 year old male, former 100 pack year smoker, quit 2018, with underlying COPD, HTN, JOHANNE unable to tolerate CPAP therapy and h/o provoked DVT completed course of Coumadin. At baseline patient reports moderate control of respiratory symptoms using Breo and Albuterol MDI PRN. Since the last visit, he was treated with azithromycin and prednisone for bronchitic symptoms with associated pleuritic discomfort. He had resolution of pleuritic discomfort while on prednisone however, these medications only minimized his symptoms rather than providing complete resolution. He describes discomfort in the middle of his back to the sides, which can be both dull and sharp. He reports that after feeling somewhat better, symptoms of chest pain and labored breathing returned yesterday afternoon, and he continues to have a cough productive of yellowish-greenish sputum. He has also been taking Mucinex for chest congestion. He denies current fevers but had chills last week. Associated symptoms include shortness of breath, chest tightness, and wheezing. A chest x-ray was performed last week at his primary care provider's office, which reportedly showed no pneumonia but did reveal mild bibasilar atelectasis. His current medications include Breo once daily, though he may have missed one or two doses, and albuterol as needed, which he uses a few times a month. His has noticed that he seems extremely tired and hoarse. [facility] Family History Father Heart problem Social History Alcohol intake: current Alcohol intake frequency: 0-2 drinks per day Patient Tobacco Use Status: Former Tobacco user Tobacco use type: Cigarette Cigarette Packs Per Day: 2.5 Years Smoked: 42 Review of Systems Narrative Const Denies chills, Denies excessive sweating, Denies fever(s), Denies headache(s) and Denies night sweats Eyes Denies dry eyes, Denies irritation and Denies itchy eyes ENT Reports Normal hearing present, Denies headache(s), Denies nasal congestion, Denies nasal discharge, Denies post nasal drip and Denies sore throat Card Denies chest pain, Denies chest pain at rest, Denies chest pain with activity, Denies claudication, Denies leg edema, Denies orthopnea and Denies paroxysmal nocturnal dyspnea Resp Denies chest congestion, Denies excessive phlegm production and Denies stridor Musc Denies myalgias Neuro Reports Normal hearing present and Denies headache(s) Endo Denies excessive sweating Benjamín/Lymph Denies lymphadenopathy Aller/Immun Denies itchy eyes and Denies seasonal rhinorrhea Physical Exam Exam Exam: Vital Signs: Last Vital Signs Pulse 73 07/03/25 11:05 BP 160/94 H 07/03/25 11:05 Pulse Ox 97 07/03/25 11:05 Oxygen Delivery Method Room Air 07/03/25 11:05 BMI result Body Mass Index 37.5 Const General: cooperative, healthy appearing, comfortable, no acute distress, well developed and alert Nutritional Appearance: obese Orientation/consciousness: patient oriented x3 Limitations: no limitations HEENT Head: Yes normal to inspection, Yes normocephalic and Yes atraumatic Ears: hearing grossly normal bilaterally and external ears normal Eyes General: appearance normal, both eyes and all related structures Eyelids: Yes eyelids normal Sclerae: sclerae normal EOM: EOMs intact bilaterally Neck Neck: Yes normal visual inspection and Yes no lymphadenopathy Lymphatic: no lymphadenopathy noted Chest Chest palpation & inspection: normal inspection of the chest Resp Effort & Inspection: normal respiratory effort, able to speak in complete sentences, no audible wheezes, no stridor, not tachypneic, no tripod positioning and no use of accessory muscles Auscultation: crackles (inspiratory bibasilar crackles) and diminished lung sounds Cardio Jugular venous distension: no JVD Rate: regular rate Rhythm: regular rhythm Skin Other: warm, dry General skin exam: no rashes or lesions noted Neuro General: patient oriented x3 Cranial nerves: Yes Normal hearing present Cognition (Neuro): normal cognition Gait exam (Neuro): Normal gait present Extrem Other: BLE 1+ pitting edema L>R Psych Appearance: grossly normal and well kempt Speech and movement: Normal speech and movement present and Clear speech present Affect: normal affect Attitude: cooperative Thought process: Normal thought process present Thought content: Normal thought content present Insight: Good insight present (Psych) Judgement: Good judgement present (Psych) Assessment & Plan Assessment & Plan (1) COPD (chronic obstructive pulmonary disease): Code(s): J44.9 - Chronic obstructive pulmonary disease, unspecified Category: Medical (2) Pleuritic pain: Code(s): R07.81 - Pleurodynia Category: Medical (3) Personal history of tobacco use: Code(s): Z87.891 - Personal history of nicotine dependence Category: Medical Plan Discussed with the patient and his that his symptoms are consistent with an acute exacerbation of his underlying lung disease, likely related to an infection that was not fully treated by the initial course of azithromycin. The plan is to start a different antibiotic, doxycycline, along with a longer course of prednisone, in addition to continuing Breo and Albuterol MDI PRN. Educated him on the potential for prednisone to elevate blood pressure and advised home monitoring. Provided an incentive spirometer and instructed him on its use to help expand his lungs. We discussed that if his symptoms do not improve, the next steps would be a sputum culture and a chest CT scan. Reinforced strict return precautions, advising him to go to the emergency room for any worsening of his condition. Will also send for ddimer given pleuritic discomfort although low likelihood given symptoms improved with prednisone. He has a follow-up scheduled for August 31 but should call if things do not improve. All questions were answered and patient is in agreement of plan. Patient was informed and verbally consented to the use of an ambient scribe for clinic note documentation during this visit. Orders: Orders D Dimer High Sensitivity Today R07.81 - Pleurodynia Medications: New prednisone see taper instructions 10 mg PO DIRECTED 30 tabs 0RF doxycycline hyclate 100 mg PO BID 20 caps 0RF Coding Level of Care Code Est Pt Level 4 (79935) Add On Problem Visit Only Diagnoses COPD (chronic obstructive pulmonary disease) J44.9 Pleuritic pain R07.81 Personal history of tobacco use Z87.898
[2025-07-03 11:05] VITALS: BP 160/94; PULSE 73; O2SAT 97; BMI 37.5
== END 2025-07-03 11:29 | disposition home or self-care (01) ==
LOC: HO.HPS 11:03
PROVIDERS: PCP Internal Medicine; Visit Provider Nurse Practitioner Family
DX: J44.9 Chronic obstructive pulmonary disease, unspecified (principal); R07.81 Pleurodynia; Z87.891 Personal history of nicotine dependence
CPT/HCPCS: 99214

== ENCOUNTER 2025-07-04 09:36 | Outpatient (REF) | payer OTHER, SELFPAY ==
[2025-07-04 11:37] LABS: D Dimer High Sensitivity < 150 NG/ML
== END 2025-07-04 09:37 | disposition home or self-care (01) ==
LOC: HO.HMGCLDS 09:36
PROVIDERS: PCP Internal Medicine; Visit Provider Nurse Practitioner Family
DX: R07.81 Pleurodynia (principal)
CPT/HCPCS: 36415; 85379